=== PATIENT | female | born 1990 | race Hispanic/Latino ===

== ENCOUNTER 2018-07-02 02:35 | Emergency (ER) | payer BC ==
[2018-07-02 02:49] VITALS: BMI 28.3
[2018-07-02 02:52] VITALS: O2SAT 100
[2018-07-02] MEDS ORDERED: Sodium Chloride 0.9% 1,000 ML IV STA (02:54)
--- NOTE | 2018-07-02 02:57 | ED PDOC ---
HPI: General Adult Time Seen by Provider: 07/02/18 02:55 Chief Complaint (Nursing): Syncope Chief Complaint (Provider): syncope History Per: Patient (28 y/o female here for evaluation of head injury that occurred today when patient was attempting to go to bathroom. Patient states she had been experiencing intense abd pain associated with constipation and then subsequently had LOC. Notes she fell forward and struck head with subsequent vomiting and headache. Currently nausea has subsided but headache persists.) Past Medical History Reviewed: Historical Data, Nursing Documentation, Vital Signs Vital Signs: Last Vital Signs Temp 98.1 F 07/02/18 02:49 Pulse 82 07/02/18 02:49 Resp 18 07/02/18 02:49 BP 113/73 07/02/18 02:49 Pulse Ox 100 07/02/18 02:49 - Family History Family History: States: No Known Family Hx - Home Medications Home Medications: Ambulatory Orders Medication Instructions Recorded Ibuprofen [Motrin] 600 mg PO Q8 PRN #21 tab 07/02/18 Ondansetron ODT [Zofran ODT] 4 mg PO Q8 PRN #8 odt 07/02/18 - Allergies Allergies/Adverse Reactions: Allergies Allergy/AdvReac Type Severity Reaction Status Date / Time No Known Allergies Allergy Verified 07/02/18 02:49 Review of Systems ROS Statement: Except As Marked, All Systems Reviewed And Found Negative Physical Exam - Reviewed Nursing Documentation Reviewed: Yes Vital Signs Reviewed: Yes - Physical Exam Appears: Positive for: Well, Non-toxic, No Acute Distress Head Exam: Positive for: ATRAUMATIC, NORMAL INSPECTION, NORMOCEPHALIC Skin: Positive for: Normal Color, Warm, DRY Eye Exam: Positive for: EOMI, Normal appearance, PERRL ENT: Positive for: Normal ENT Inspection Neck: Positive for: Normal, Painless ROM Cardiovascular/Chest: Positive for: Regular Rate, Rhythm Respiratory: Positive for: CNT, Normal Breath Sounds Gastrointestinal/Abdominal: Positive for: Normal Exam, Soft Back: Positive for: Normal Inspection Extremity: Positive for: Normal ROM Neurologic/Psych: Positive for: Alert, Oriented - Laboratory Results Result Diagrams: 07/02/18 03:12 07/02/18 03:12 - ECG O2 Sat by Pulse Oximetry: 100 - Progress ED Course And Treament: ekg: nsr 69bpm; no ectopy no acute changes urine preg neg NS 1 liter 500 ml per hour Head CT: nad zofran 4mg iv x 1 dose Patient tolerating fluids in ED Disposition - Clinical Impression Clinical Impression: Vasovagal syncope, Head injury - Patient ED Disposition Is Patient to be Admitted: No - Disposition Referrals: [facility] [Outside] Disposition: Routine/Home Disposition Time: 03:56 Condition: FAIR Prescriptions: Ibuprofen [Motrin] 600 mg PO Q8 PRN #21 tab PRN Reason: Pain, Moderate (4-7) Ondansetron ODT [Zofran ODT] 4 mg PO Q8 PRN #8 odt PRN Reason: Nausea/Vomiting Instructions: Vasovagal Response, Closed Head Injury (DC), Postconcussion Syndrome Forms: [facility] ED School/Work Excuse
[2018-07-02 03:45] LABS: BASO # 0.1 K/uL (0.0-0.2); BASO % 0.7 % (0.0-2.0); EOS # 0.1 K/uL (0.0-0.7); EOS % 1.1 % (0.0-4.0); HEMOGLOBIN 13.4 g/dL (12.0-16.0); LYMPH # 3.8 K/uL (1.0-4.3); LYMPH % 40.4 % (20.0-40.0); MEAN CELL VOLUME 85.5 fl (81.0-99.0); MEAN CORPUSCULAR HGB CONC 33.9 g/dL (33.0-37.0); MEAN PLATELET VOLUME 9.1 fl (7.2-11.7); MONO # 0.5 K/uL (0.0-0.8); NEUT # 4.9 K/uL (1.8-7.0); NEUT % 52.8 % (50.0-75.0); NRBC % 0.2 % (0.0-0.0); RBC 4.61 Mil/uL (3.80-5.20); RED CELL DISTRIBUTION WIDTH 12.8 % (11.5-14.5); WHITE BLOOD COUNT 9.3 K/uL (4.8-10.8)
[2018-07-02 03:46] LABS: ALB/GLOB RATIO 1.3 (1.0-2.1); ALBUMIN 3.9 g/dL (3.5-5.0); ALT/SGPT 18 U/L (9-52); AST/SGOT 28 U/L (14-36); BLOOD UREA NITROGEN 12 mg/dl (7-17); CALCIUM 8.9 mg/dL (8.4-10.2); GFR NON-AFRICAN AMERICAN > 60
[2018-07-02 04:50] VITALS: BP 128/73; PULSE 81; RESP 15; TEMP 98
--- NOTE | 2018-07-02 09:46 | CT ---
Date of service: 07/02/2018 PROCEDURE: CT HEAD WITHOUT CONTRAST. HISTORY: head injury COMPARISON: None available. TECHNIQUE: Axial computed tomography images were obtained through the head/brain without intravenous contrast. Radiation dose: Total exam DLP = 704.01 mGy-cm. This CT exam was performed using one or more of the following dose reduction techniques: Automated exposure control, adjustment of the mA and/or kV according to patient size, and/or use of iterative reconstruction technique. FINDINGS: HEMORRHAGE: No intracranial hemorrhage. BRAIN: Normal gold-white matter differentiation and density are appreciated throughout the cerebrum and cerebellum with the brainstem appearing unremarkable as well. There is no mass effect. There is no suspicious extra-axial fluid collection and the midline brain anatomy appears diffusely unremarkable. VENTRICLES: Unremarkable. No hydrocephalus. CALVARIUM: No destructive bony lesion or displaced fracture identified including through the skullbase. PARANASAL SINUSES: Unremarkable as visualized. No significant inflammatory changes. MASTOID AIR CELLS: Unremarkable as visualized. No inflammatory changes. OTHER FINDINGS: None. IMPRESSION: Unremarkable unenhanced head CT. Concordant preliminary report from [facility], 07/02/2018, 3:48 a.m..
--- NOTE | 2018-07-02 12:10 | CARD ---
APPROVED REPORT Date of service: 07/02/2018 EKG Measurement Heart [id number] <Conclusion> Normal sinus rhythm Normal ECG
== END 2018-07-02 04:50 | disposition home or self-care (01) ==
LOC: H.ER 02:35
DX: R55 Syncope and collapse (principal); S09.90XA Unspecified injury of head, initial encounter; W19.XXXA Unspecified fall, initial encounter; Y92.89 Other specified places as the place of occurrence of the external cause; K59.00 Constipation, unspecified
CPT/HCPCS: 70450; 80053; 81025; 85025; 93005; 96374; 99285; J2405; J7030

== ENCOUNTER 2018-09-10 16:41 | Emergency (ER) | payer BC, OTHER ==
[2018-09-10 16:41] VITALS: BMI 28.3
[2018-09-10 17:18] VITALS: O2SAT 100
[2018-09-10] MEDS ORDERED: Sodium Chloride 0.9% 1,000 ML IV STA (17:35)
--- NOTE | 2018-09-10 17:38 | ED PDOC ---
HPI: Abdomen Time Seen by Provider: 09/10/18 17:37 Chief Complaint (Nursing): Abdominal Pain Chief Complaint (Provider): ABDOMINAL PAIN History Per: Patient (28 Y/O FEMALE LMP 7 DAYS AGO HERE WITH LOWER ABD PAIN RADIATING TO EPIGASTRIC X 3 HOURS. DENIES ANY VOMITING/FEVERS/CHILLS. NO DYSURIA NOTED.) Past Medical History Reviewed: Historical Data, Nursing Documentation, Vital Signs Vital Signs: Last Vital Signs Temp 98.3 F 09/10/18 17:18 Pulse 83 09/10/18 17:18 Resp 20 09/10/18 17:18 BP 133/88 09/10/18 17:18 Pulse Ox 100 09/10/18 17:18 - Family History Family History: States: No Known Family Hx - Home Medications Home Medications: Ambulatory Orders Medication Instructions Recorded Ibuprofen [Motrin] 600 mg PO Q8 PRN #21 tab 07/02/18 Ondansetron ODT [Zofran ODT] 4 mg PO Q8 PRN #8 odt 07/02/18 - Allergies Allergies/Adverse Reactions: Allergies Allergy/AdvReac Type Severity Reaction Status Date / Time No Known Allergies Allergy Verified 07/02/18 02:49 Review of Systems ROS Statement: Except As Marked, All Systems Reviewed And Found Negative Gastrointestinal: Positive for: Abdominal Pain Physical Exam - Reviewed Nursing Documentation Reviewed: Yes Vital Signs Reviewed: Yes - Physical Exam Appears: Positive for: Well, Non-toxic, No Acute Distress Head Exam: Positive for: ATRAUMATIC, NORMAL INSPECTION, NORMOCEPHALIC Skin: Positive for: Normal Color, Warm, DRY Eye Exam: Positive for: EOMI, Normal appearance, PERRL ENT: Positive for: Normal ENT Inspection Neck: Positive for: Normal, Painless ROM Cardiovascular/Chest: Positive for: Regular Rate, Rhythm Respiratory: Positive for: CNT, Normal Breath Sounds Gastrointestinal/Abdominal: Positive for: Normal Exam, Soft, Tenderness (BILATERAL LOWER ABDOMINAL TENDERNESS) Pelvic Exam: Positive for: No Cerv. Motion Tender, Tender Adnexa (LEFT ADNEXA TENDERNESS MILD). Negative for: Discharge Back: Positive for: Normal Inspection Extremity: Positive for: Normal ROM Neurological/Psych: Positive for: Awake, Alert, Normal Tone - Laboratory Results Result Diagrams: 09/10/18 17:52 09/10/18 17:52 Urine POC: Negative Urine dip results: Negative for: Leukocyte Esterase, Blood, Nitrate, Ketones, Glucose, Bilirubin, Protein - ECG O2 Sat by Pulse Oximetry: 100 - Progress ED Course And Treament: TORADOL 15 MG IV X 1 DOSE PATIENT FEELS IMPROVED. GC SENT. Disposition - Clinical Impression Clinical Impression: Abdominal pain in female - Patient ED Disposition Is Patient to be Admitted: Transfer of Care - Disposition Disposition: Transfer of Care Disposition Time: 19:56 Condition: FAIR Additional Instructions: FOLLOW UP WITH [facility] THIS WEEK FOR PERSISENT PAIN Instructions: Acute Abdomen (Belly Pain) Patient Signed Over To: Italia Allen Handoff Comments: PENDING US READING
[2018-09-10 17:56] LABS: BASO % 0.4 % (0.0-2.0); EOS # 0.1 K/uL (0.0-0.7); EOS % 0.7 % (0.0-4.0); HEMOGLOBIN 13.8 g/dL (12.0-16.0); LYMPH # 2.3 K/uL (1.0-4.3); LYMPH % 20.2 % (20.0-40.0); MEAN CELL VOLUME 85.2 fl (81.0-99.0); MEAN CORPUSCULAR HEMOGLOBIN 29.1 pg (27.0-31.0); MEAN CORPUSCULAR HGB CONC 34.2 g/dL (33.0-37.0); MONO # 0.4 K/uL (0.0-0.8); MONO % 3.3 % (0.0-10.0); NEUT # 8.4 K/uL (1.8-7.0); NEUT % 75.4 % (50.0-75.0); NRBC % 0.1 % (0.0-0.0); RBC 4.73 Mil/uL (3.80-5.20); WHITE BLOOD COUNT 11.2 K/uL (4.8-10.8)
[2018-09-10 18:14] LABS: ALB/GLOB RATIO 1.5 (1.0-2.1); ALBUMIN 4.2 g/dL (3.5-5.0); ALT/SGPT 27 U/L (9-52); AST/SGOT 33 U/L (14-36); BLOOD UREA NITROGEN 13 mg/dl (7-17); CALCIUM 9.2 mg/dL (8.4-10.2); GFR NON-AFRICAN AMERICAN > 60; LIPASE 161 U/L (23-300)
[2018-09-10 18:26] LABS: SQUAMOUS EPITHIAL < 1 /hpf (0-5); URINE BACTERIA RARE (<OCC); URINE BILIRUBIN NEGATIVE (NEGATIVE); URINE BLOOD NEGATIVE (NEGATIVE); URINE CLARITY CLEAR (Clear); URINE COLOR YELLOW (YELLOW); URINE GLUCOSE (UA) NEG (NEGATIVE); URINE LEUKOCYTE ESTERASE NEG Leu/uL (Negative); URINE PROTEIN NEGATIVE (NEGATIVE); URINE UROBILINOGEN 0.2-1.0 mg/dL (0.2-1.0)
--- NOTE | 2018-09-10 20:49 | ED PDOC ---
- Laboratory Results Result Diagrams: 09/10/18 17:52 09/10/18 17:52 Lab Results: Total Bilirubin 0.4 mg/dl (0.2-1.3) 09/10/18 17:52 AST 33 U/L (14-36) 09/10/18 17:52 ALT 27 U/L (9-52) 09/10/18 17:52 Alkaline Phosphatase 62 U/L (38-126) 09/10/18 17:52 Total Protein 7.1 G/DL (6.3-8.2) 09/10/18 17:52 Albumin 4.2 g/dL (3.5-5.0) 09/10/18 17:52 Globulin 2.9 gm/dL (2.2-3.9) 09/10/18 17:52 Albumin/Globulin Ratio 1.5 (1.0-2.1) 09/10/18 17:52 Lipase 161 U/L (23-300) 09/10/18 17:52 Urine Color Yellow (YELLOW) 09/10/18 17:57 Urine Clarity Clear (Clear) 09/10/18 17:57 Urine pH 6.0 (5.0-8.0) 09/10/18 17:57 Ur Specific [place] 1.013 (1.003-1.030) 09/10/18 17:57 Urine Protein Negative mg/dL (NEGATIVE) 09/10/18 17:57 Urine Glucose (UA) Neg mg/dL (NEGATIVE) 09/10/18 17:57 Urine Ketones Negative mg/dL (NEGATIVE) 09/10/18 17:57 Urine Blood Negative (NEGATIVE) 09/10/18 17:57 Urine Nitrate Negative (NEGATIVE) 09/10/18 17:57 Urine Bilirubin Negative (NEGATIVE) 09/10/18 17:57 Urine Urobilinogen 0.2-1.0 mg/dL (0.2-1.0) 09/10/18 17:57 Ur Leukocyte Esterase Neg [place]/uL (Negative) 09/10/18 17:57 Urine RBC (Auto) 1 /hpf (0-3) 09/10/18 17:57 Urine Microscopic WBC 1 /hpf (0-5) 09/10/18 17:57 Ur Squamous Epith Cells < 1 /hpf (0-5) 09/10/18 17:57 Urine Bacteria Rare (<OCC) 09/10/18 17:57 Urine POC: Negative - ECG O2 Sat by Pulse Oximetry: 100 - Progress ED Course And Treament: History Pain. Comparison None available. Technique TA/TV Findings Uterus Measures 6.2 x 3.5 x 2.7 cm. Normal in size and appearance. No fibroid or other mass lesion seen. Endometrium Measures 2.6 mm in diameter. Unremarkable. Right ovary Measures 3.11 x 1.34 x 1.54 cm. No solid mass. Normal flow. Multiple follicles, the largest measures 0.96 x 0.78 x 0.84 cm. Left ovary Measures 2.5 x 2.25 x 1.51 cm. No solid mass. Normal flow. Follicle measures 0.86 x 0.92 x 0.56 cm. Free fluid No significant free fluid noted. Other Findings None. Impression 1. Multiple bilateral ovarian follicles. 2. No torsion or adnexal masses. On re-eval, patient states pain improved but still present. CT abd/pelvis ordered EXAM: CT Abdomen and Pelvis with IV contrast CLINICAL HISTORY: Lower abd pain TECHNIQUE: Axial computed tomography images of the abdomen and pelvis with intravenous contrast. 490.80 mGy-cm CONTRAST: With; [id number] 95ML COMPARISON: None provided. FINDINGS: LUNG BASES: The lung bases appear clear. No pleural effusions are seen. LIVER: Unremarkable. GALLBLADDER AND BILE DUCTS: The gallbladder appears within normal limits. No radioopaque gallstones are seen. No biliary ductal dilatation is evident. PANCREAS: Unremarkable. SPLEEN: Unremarkable. ADRENAL GLANDS: Unremarkable. KIDNEYS, URETERS, AND BLADDER: The kidneys appear within normal limits. There is no hydronephrosis or hydroureter. No urinary calculi are seen. The urinary bladder appeared normal in size and configuration. STOMACH AND BOWEL: Unremarkable appearance of the stomach. No evidence of bowel obstruction. There is mild mucosal wall thickening of the ileal small intestinal tract with fluid in its lumen thought compatible with ileitis. Infectious or inflammatory etiologies are thought most likely. No evidence suggesting colitis. APPENDIX: No evidence of acute appendicitis on CT examination. PERITONEUM: No free fluid. No free air. LYMPH NODES: No lymphadenopathy is evident. Multiple mesenteric lymph nodes are noted; many of which measure greater than 5.0 mm in transverse axis compatible with mesenteric adenitis. REPRODUCTIVE: Unremarkable as visualized. VASCULATURE: No evidence of abdominal aortic aneurysm. BONES: No aggressive appearing osseous lesion. No acute osseous pathology evident. IMPRESSION: 1. Evidence of ileitis. 2. Evidence of mesenteric adenitis. Patient educated on findings, discharged with rx Cipro, Flagyl, Bentyl Advised GI follow up (patient states she has one she follows with) Return precautions given Disposition - Clinical Impression Clinical Impression: Abdominal pain in female, Ileitis - POA Present On Arrival: None - Disposition Disposition: Routine/Home Disposition Time: 23:31 Condition: IMPROVED Prescriptions: Ciprofloxacin HCl [Cipro] 500 mg PO BID #20 tab Dicyclomine [Bentyl] 20 mg PO TID PRN #21 tab PRN Reason: Pain, Mild (1-3) Metronidazole [Flagyl] 500 mg PO TID #30 tablet Instructions: Acute Abdomen (Belly Pain) Forms: [facility] (Polish)
[2018-09-10] MEDS ORDERED: Iohexol 300 100 ML IJ ONE (22:15)
[2018-09-10] MEDS ORDERED: Sodium Chloride 0.9% 50 ML IV ONE (22:16)
[2018-09-10 23:40] VITALS: BP 137/86; PULSE 72; RESP 15; TEMP 98.1
--- NOTE | 2018-09-11 11:55 | CT ---
Date of service: 09/10/2018 PROCEDURE: CT Abdomen and Pelvis with contrast HISTORY: Lower abdominal pain. Negative test (concurrent with this examination). COMPARISON: None. TECHNIQUE: Intravenous contrast dose: 95 cc Omnipaque 300. Radiation dose: Total exam DLP = 490.80 mGy-cm. This CT exam was performed using one or more of the following dose reduction techniques: Automated exposure control, adjustment of the mA and/or kV according to patient size, and/or use of iterative reconstruction technique. FINDINGS: LOWER THORAX: Unremarkable. LIVER: Unremarkable. No gross lesion or ductal dilatation. GALLBLADDER AND BILE DUCTS: Unremarkable. PANCREAS: Unremarkable. No gross lesion or ductal dilatation. SPLEEN: Unremarkable. ADRENALS: Unremarkable. No mass. KIDNEYS AND URETERS: Unremarkable. No hydronephrosis. No solid mass. VASCULATURE: Unremarkable. No aortic aneurysm. No atherosclerotic calcification or mural plaque present. BOWEL: A normal appendix is visualized in it's entirety. APPENDIX: Normal appendix. PERITONEUM: Unremarkable. No free fluid. No free air. LYMPH NODES: Unremarkable. No enlarged lymph nodes. BLADDER: Unremarkable. REPRODUCTIVE: Unremarkable. BONES: No acute fracture. OTHER FINDINGS: None. IMPRESSION: Unremarkable contrast enhanced CT of the abdomen and pelvis.
--- NOTE | 2018-09-11 12:33 | US ---
Date of service: 09/10/2018 HISTORY: R/O OVARIAN CYST/TORSION Pain 4 hr duration. LMP 09/01/2018. Cycles are regular.. COMPARISON: None available. TECHNIQUE: Transvaginal only. Real -time technique with 2D, duplex and color Doppler FINDINGS: UTERUS: Measures 2.7 x 3.5 x 6.2 cm. Normal in size and appearance. No fibroid or other mass lesion seen. ENDOMETRIUM: Measures 2.6 mm in diameter. Unremarkable. CERVIX: No cervical abnormality identified. RIGHT OVARY: Measures 1.3 x 1.5 x 3.1 cm. No solid mass. Normal flow. Multiple subcentimeter follicles. LEFT OVARY: Measures 1.6 x 2.3 x 2.5 cm. No solid mass. Normal flow. Multiple subcentimeter follicles. FREE FLUID: No significant free fluid noted. OTHER FINDINGS: None. IMPRESSION: No significant or acute findings to account for/ related to the clinical presentation. Concordant findings (preliminary report) provided by [facility].
== END 2018-09-10 23:40 | disposition home or self-care (01) ==
LOC: H.ER 16:41
DX: R10.2 Pelvic and perineal pain (principal); K52.9 Noninfective gastroenteritis and colitis, unspecified
CPT/HCPCS: 74177; 76830; 80053; 81003; 81025; 83690; 85025; 87086; 87491; 87591; 96374; 99284; J1885; J7030; Q9967